=== PATIENT | female | born 1965 | race Caucasian/White ===

== ENCOUNTER 2016-08-21 07:23 | Emergency (ER) ==
[2016-08-21] MEDS ORDERED: NORCO-7.5 PO ONE (07:40)
[2016-08-21] MEDS ORDERED: SOLU-MEDROL IV ONE (07:40)
[2016-08-21] MEDS ORDERED: BENADRYL IV ONE (07:40)
[2016-08-21] MEDS ORDERED: NS 1,000 ML IV ONE (07:40)
[2016-08-21] MEDS ORDERED: ZOFRAN IV ONE (07:40)
[2016-08-21] MEDS ORDERED: PEPCID IV ONE (07:40)
[2016-08-21] MEDS ORDERED: SODIUM CHLORIDE 0.9% INJ ONE (07:40)
[2016-08-21 07:50] LABS: MANUAL DIFF NEEDED? NO
[2016-08-21 07:52] LABS: BASO% 0.1 % (0.0-0.8); EOS# 0.04 X1000 (0.0-0.7); EOS% 0.3 % (0.0-10.0); HEMATOCRIT 42.5 % (37.0-47.0); HEMOGLOBIN 14.4 g/dL (12.0-16.0); IMM GRAN# 0.04 X1000 (0.0-0.04); IMM GRAN% 0.3 % (0.0-0.5); LYMPH# 1.11 X1000 (1.2-3.4); LYMPH% 9.4 % (20.5-51.1); MCH 29.9 PG (27-31); MCHC 33.9 g/dL (33-37); MCV 88.4 FL (81-99); MONO% 6.8 % (1.7-9.3); MPV 10.4 FL (7.4-10.4); NEUT% 83.1 % (42.2-75.2); PLT 311 X1000 (130-400); RBC 4.81 XMIL (4.2-5.4)
--- NOTE | 2016-08-21 07:53 | PROVIDER DOCUMENTATION ---
HPI-General Adult - General Chief Complaint: Allergic Reaction Stated Complaint: ALLERGIC REACTION Time Seen by Provider: 08/21/16 07:33 Source: patient Allergies/Adverse Reactions: Patient Allergies Allergy/AdvReac Type Severity Reaction Status Date / Time cefuroxime axetil * Allergy SWELLING Verified 08/21/16 07:45 [From Ceftin] Penicillins Allergy ANAPHYLAXIS Verified 08/21/16 07:45 Home Medications: Cetirizine HCl [Zyrtec] 10 mg PO QAM 08/21/16 Fluoxetine HCl [Prozac] 10 mg PO QAM 08/21/16 Gabapentin [Neurontin] 300 mg PO DAILY 08/21/16 Oxaprozin [Daypro] 600 mg PO DAILY 08/21/16 Tizanidine HCl [Zanaflex] 4 mg PO QHS 08/21/16 Valsartan 80 mg PO QAM 08/21/16 - History of Present Illness -Gen Adult Nature of Presenting Problems: Reports facial swelling, feeling throat swelling and nauseated since yesterday afternoon. Could not think of the cause except for completed a course of Cefotan for sinus infection via PCP recently. Pt is allergic to PCN. Denies SOB , but has puffy face and anxious. Location of Pain/Injury: reports: none Pain Radiation: reports: no radiation Quality of Pain: reports: none Severity: reports: moderate Onset/Duration: reports: 24 hours ago Timing: reports: still present Context/Activities at Onset: reports: other (See above) Modifying Factors: improves with: nothing Associated Symptoms: reports: anxiety, nausea. denies: chest pain, cough, diaphoresis, diarrhea, fatigue, fever/chills, loss of appetite, malaise, muscle aches, shortness of breath, sensory/motor loss, weakness, trouble walking Similar Symptoms Previously?: No Recently seen or treated by another doctor?: No Review of Systems - Adult - REVIEW OF SYSTEMS - ADULT Constitutional: reports: no symptoms reported Eyes: reports: no symptoms reported Ears, Nose, Mouth & Throat: reports: see HPI, mouth swelling, throat swelling. denies: epistaxis, hoarseness, throat pain Cardiovascular: reports: no symptoms reported Respiratory: reports: no symptoms reported Gastrointestinal: reports: no symptoms reported Genitourinary: reports: no symptoms reported Musculoskeletal: reports: no symptoms reported Integumentary: reports: no symptoms reported Neurological: reports: no symptoms reported Psychiatric: reports: no symptoms reported Endocrine: reports: no symptoms reported Hematologic/Lymphatic: reports: no symptoms reported Allergic/Immunologic: reports: see HPI, allergic reactions All Other Systems: Reviewed and Negative Physical Exam-General - PHYSICAL EXAM-ADULT Initial Vital Signs Reviewed: Yes - CONSTITUTIONAL General Appearance: appears well, alert, no apparent distress, other (Puffy face with erythema, especially b/l eyelid swelling.) - EYES Eyes: PERRL/EOMI - HEAD, EARS, NOSE, MOUTH & THROAT HENMT: normocephalic/atraumatic, moist mucous membranes, other (Very mild throat erythema and swelling) - NECK Neck: non-tender, full range of motion, supple - RESPIRATORY Respiratory: chest non-tender, lungs clear, normal breath sounds, no pleuratic chest pain, no respiratory distress - CARDIOVASCULAR Cardiovascular: normal peripheral pulses, regular rate, rhythm, no edema, no gallop - GASTROINTESTINAL (ABDOMEN) Abdominal Exam: normal bowel sounds, non tender, soft, no organomegaly, no pulsatile mass - MUSCULOSKELETAL Back Exam: normal inspection, no CVA tenderness Extremity: normal range of motion, non-tender, normal gait - SKIN Integumentary: normal turgor, rash, swelling, other (See above). negative: tenderness - NEUROLOGIC Neurologic: grossly normal, no motor/sensory deficits - PSYCHIATRIC Psych/Mental Status: normal mood/affect, normal thought content, normal thought process, oriented x 3 Progress - PLAN OF CARE/RESULTS Progress/Plan/Lab Results: Laboratory Results - last 24 hr 08/21/16 08/21/16 07:40 07:40 WBC 11.76 H RBC 4.81 Hgb 14.4 Hct 42.5 MCV 88.4 MCH 29.9 MCHC 33.9 RDW Std Deviation 11.5 Plt Count 311 MPV 10.4 Immature Gran % (Auto) 0.3 Neut % (Auto) 83.1 H Lymph % (Auto) 9.4 L [place] % (Auto) 6.8 Eos % (Auto) 0.3 Baso % (Auto) 0.1 Immature Gran # (Auto) 0.04 Neut # (Auto) 9.76 H Lymph # (Auto) 1.11 L [place] # (Auto) 0.80 H Eos # (Auto) 0.04 Baso # (Auto) 0.01 Sodium 139 Potassium 4.0 Chloride 101 Carbon Dioxide 22 L Anion Gap 16 BUN 14 Creatinine 1.2 H Estimated GFR/1.73 m2 47 BUN/Creatinine Ratio 12 Glucose 119 H Calculated Osmolality 279 Calcium 9.0 Total Bilirubin 0.29 AST 17 ALT 11 Alkaline Phosphatase 73 Total Protein 6.7 Albumin 4.2 Globulin 2.5 Albumin/Globulin Ratio 1.7 Vital Signs Temp Pulse Resp BP Pulse Ox 08/21/16 07:26 98.6 F 107 H 20 141/85 98 cefuroxime axetil * [From Ceftin] Allergy (Verified 08/21/16 07:45) SWELLING Penicillins Allergy (Verified 08/21/16 07:45) ANAPHYLAXIS Cetirizine HCl [Zyrtec] 10 mg PO QAM 08/21/16 Fluoxetine HCl [Prozac] 10 mg PO QAM 08/21/16 Gabapentin [Neurontin] 300 mg PO DAILY 08/21/16 Oxaprozin [Daypro] 600 mg PO DAILY 08/21/16 Tizanidine HCl [Zanaflex] 4 mg PO QHS 08/21/16 Valsartan 80 mg PO QAM 08/21/16 Laboratory 08/21/16 08/21/16 07:40 07:40 WBC 11.76 H RBC 4.81 Hgb 14.4 Hct 42.5 MCV 88.4 MCH 29.9 MCHC 33.9 RDW Std Deviation 11.5 Plt Count 311 MPV 10.4 Immature Gran % (Auto) 0.3 Neut % (Auto) 83.1 H Lymph % (Auto) 9.4 L [place] % (Auto) 6.8 Eos % (Auto) 0.3 Baso % (Auto) 0.1 Immature Gran # (Auto) 0.04 Neut # (Auto) 9.76 H Lymph # (Auto) 1.11 L [place] # (Auto) 0.80 H Eos # (Auto) 0.04 Baso # (Auto) 0.01 Sodium 139 Potassium 4.0 Chloride 101 Carbon Dioxide 22 L Anion Gap 16 BUN 14 Creatinine 1.2 H Estimated GFR/1.73 m2 47 BUN/Creatinine Ratio 12 Glucose 119 H Calculated Osmolality 279 Calcium 9.0 Total Bilirubin 0.29 AST 17 ALT 11 Alkaline Phosphatase 73 Total Protein 6.7 Albumin 4.2 Globulin 2.5 Albumin/Globulin Ratio 1.7 Vital Signs Temp Pulse Resp BP Pulse Ox 08/21/16 07:26 98.6 F 107 H 20 141/85 98 cefuroxime axetil * [From Ceftin] Allergy (Verified 08/21/16 07:45) SWELLING Penicillins Allergy (Verified 08/21/16 07:45) ANAPHYLAXIS Cetirizine HCl [Zyrtec] 10 mg PO QAM 08/21/16 Fluoxetine HCl [Prozac] 10 mg PO QAM 08/21/16 Gabapentin [Neurontin] 300 mg PO DAILY 08/21/16 Oxaprozin [Daypro] 600 mg PO DAILY 08/21/16 Tizanidine HCl [Zanaflex] 4 mg PO QHS 08/21/16 Valsartan 80 mg PO QAM 08/21/16 Laboratory 08/21/16 08/21/16 07:40 07:40 WBC 11.76 H RBC 4.81 Hgb 14.4 Hct 42.5 MCV 88.4 MCH 29.9 MCHC 33.9 RDW Std Deviation 11.5 Plt Count 311 MPV 10.4 Immature Gran % (Auto) 0.3 Neut % (Auto) 83.1 H Lymph % (Auto) 9.4 L [place] % (Auto) 6.8 Eos % (Auto) 0.3 Baso % (Auto) 0.1 Immature Gran # (Auto) 0.04 Neut # (Auto) 9.76 H Lymph # (Auto) 1.11 L [place] # (Auto) 0.80 H Eos # (Auto) 0.04 Baso # (Auto) 0.01 Sodium 139 Potassium 4.0 Chloride 101 Carbon Dioxide 22 L Anion Gap 16 BUN 14 Creatinine 1.2 H Estimated GFR/1.73 m2 47 BUN/Creatinine Ratio 12 Glucose 119 H Calculated Osmolality 279 Calcium 9.0 Total Bilirubin 0.29 AST 17 ALT 11 Alkaline Phosphatase 73 Total Protein 6.7 Albumin 4.2 Globulin 2.5 Albumin/Globulin Ratio 1.7 Orders Category Date Time Status Saline Loc NOW Care 08/21/16 07:40 Active CBC WITH DIFF [HEME] Stat Lab 08/21/16 07:40 Completed COMPREHENSIVE METABOLIC PANEL [CHEM] Stat Lab 08/21/16 07:40 Completed 0.9% Sodium Chloride Inj [Ns] 1,000 ml Med 08/21/16 07:40 Active IV 999 mls/hr Diphenhydramine [Benadryl] Med 08/21/16 07:40 Discontinued 50 mg IV NOW ONE Famotidine [Pepcid] Med 08/21/16 07:40 Discontinued 20 mg IV NOW ONE Hydrocodone/APAP 7.5 mg/325 mg [[place]-7.5] Med 08/21/16 07:40 Discontinued 1 each PO NOW ONE Methylprednisolone Sod Succ [Solu-Medrol] Med 08/21/16 07:40 Discontinued 125 mg IV NOW ONE Ondansetron [Zofran] Med 08/21/16 07:40 Discontinued 8 mg IV NOW ONE Sodium Chloride 0.9% Med 08/21/16 07:40 Discontinued 5 - 10 ml INJ NOW ONE - REASSESSMENT Reassessment #1 Time Reassessed: 08:21 Status: improving (Pt is doing much better, puffy face improved a lot. No SOB.) Departure - Departure Time of Disposition Order: 08:21 DIAGNOSIS: Allergic reaction Qualifiers: Encounter type: initial encounter Qualified Code(s): T78.40XA - Allergy, unspecified, initial encounter Disposition: HOME 01 Certified Medical Emergency: Emergent Condition: Stable Additional Instructions: Follow up with regular MD in 2-3 days. Do not take Penicillin/Cephalosporins related medications from now on. Plenty of oral fluids. Prescriptions: Diphenhydramine [Benadryl] 50 mg PO TID #10 capsule Epinephrine Auto Injector [Epipen] 0.3 mg IM DIRECTED PRN PRN #1 [email or web address] PRN Reason: Allergy Methylprednisolone [Medrol Dosepak] 4 mg PO DIRECTED #1 package Famotidine [Pepcid] 40 mg PO DAILY #20 tablet Referrals: Sumeet Roberts MD [Primary Care Provider] -
[2016-08-21 08:10] LABS: ALBUMIN 4.2 g/dL (3.5-5.0); TOTAL BILIRUBIN 0.29 mg/dL (0.20-1.00); TOTAL PROTEIN 6.7 g/dL (6.3-8.3)
[2016-08-21 09:09] VITALS: BP 117/69
[2016-08-21] MEDS ORDERED: ATIVAN PO ONE (09:23)
[2016-08-21] MEDS ORDERED: ATIVAN ONE (09:24)
== END 2016-08-21 09:27 | disposition home or self-care (01) ==
LOC: ED 07:23
DX: T78.40XA Allergy, unspecified, initial encounter (principal); R22.0 Localized swelling, mass and lump, head; R11.0 Nausea; L53.9 Erythematous condition, unspecified; R21 Rash and other nonspecific skin eruption; Z79.899 Other long term (current) drug therapy
CPT/HCPCS: 80053; 85025; 96374; 96375; J1200; J2405; J2930; J7030